=== PATIENT | female | born 1990 | race Asian ===

== ENCOUNTER → 2016-11-27 | Day surgery (SDC) | payer OTHER ==
[~2016-11-27] MED LIST: CEFAZOLIN 2000 MG/60 ML D5W IV SCH; CLIN1CAP51 PO; KETO10TA PO; LACTATED RINGER'S 1000ML 1,000 ML IV SCH; PATIENT'S ALLERGY INFO NEEDS ENTERED SCH; PATIENT'S HEIGHT AND/OR WEIGHT NEEDED SCH
== END | disposition home or self-care (01) ==
LOC: EDSTATUS 10:00 → C.PAT 14:34
DX: K13.79 Other lesions of oral mucosa (principal)

== ENCOUNTER → 2016-11-30 | Outpatient (CLI) | payer OTHER ==
[~2016-11-30] MED LIST changes: -CEFAZOLIN 2000 MG/60 ML D5W IV SCH; -LACTATED RINGER'S 1000ML 1,000 ML IV SCH; -PATIENT'S ALLERGY INFO NEEDS ENTERED SCH; -PATIENT'S HEIGHT AND/OR WEIGHT NEEDED SCH
== END | disposition home or self-care (01) ==
LOC: C.PATHSPEC 17:39
PROVIDERS: ATTEND Physician Assistant
DX: K13.79 Other lesions of oral mucosa (principal)

== ENCOUNTER 2016-12-03 21:23 | Emergency (ER) | payer OTHER ==
[~2016-12-03] VITALS: Ht 160 cm; Wt 49.6 kg
[2016-12-03 21:29] VITALS: TEMP 37; Ht 160 cm; Wt 49.6 kg
[2016-12-03] MEDS ORDERED: CLIN1CAP51 PO (21:45)
[2016-12-03] MEDS ORDERED: KETOROLAC TROMETHAMINE 10 MG TAB PO STA (22:35)
[2016-12-03] MEDS ORDERED: KETO10TA PO (22:38)
[2016-12-03] MEDS ORDERED: EMPTY 8 DRAM VIAL ONE (23:06)
[2016-12-03 23:14] VITALS: BP 99/63; PULSE 66; O2SAT 100
--- NOTE | 2016-12-04 23:09 | EMERGENCY ROOM VISIT NOTE ---
ED Visit Note First contact with patient: 21:35 Chief Complaint: Infection. History of Present Illness: Ms. Cardenas is a 26-year-old [place] female who ambulates into the ED complaining of a possible infection of her lip after a surgical procedure. Patient reports 3 days ago she had a mucocele removed over the right side of her lower lip. She started experiencing pain and swelling yesterday and was re- seen by the ENT specialist who did the procedure and started on clindamycin. Patient reports today she has noted increase in swelling, increasing pain and pus like drainage from her surgical site. Currently she describes her pain as a throbbing and sharp sensation. She rates her discomfort 9/10. Her pain is nonradiating. Her pain worsens with palpation, movements of the lips. She has not identified any alleviating factors related to the pain. She has not taken any medications for pain prior to arrival at the hospital. She denies any associated fevers, chills, sweats, facial swelling outside of her lip surgery, dental pain, mouth pain, neck pain/stiffness, chest pain, shortness of breath, abdominal pain, decreased appetite, nausea/vomiting. Review of Systems: As noted above in history of present illness. 8 body systems were reviewed and found to be negative as noted above. Past Medical History: As previously noted. Current Medications: As previously noted. Allergies to Medications: Patient denies. Social History: Patient is currently a student records coordinator; she feels safe in her home environment; she denies tobacco and alcohol use. Physical Examination: Vital Signs: Date Time Temp Pulse Resp B/P (MAP) Pulse Ox O2 Delivery O2 Flow Rate FiO2 12/03/16 23:14 66 17 99/63 100 12/03/16 21:29 37.0 79 16 126/82 98 Room Air GENERAL: 26-year-old female in mild distress due to pain, nontoxic-appearing, afebrile and hemodynamically stable. NEUROLOGICAL: Awake, alert and oriented to person, place and time. Answering questions appropriately and following commands. Normal gait. Good hand eye coordination. SKIN: Warm, dry and pink. HEENT: Atraumatic and normocephalic. Sclera white and conjunctiva pink. Lower Lip: Over the left side of the lower lip just inside of the mouth patient has 4 sutures at her surgical site. There is no active drainage. The surgical site is mildly edematous but not erythematous. The most proximal suture has a very small area of pus adjacent to the suture. There is no active bleeding or discharge. The areas not warm to touch. The oral cavity is moist and pink. Pharynx is nonerythematous or edematous. Speech normal. No lymphadenopathy. ED Course: Patient is assessed as noted above. Patient was offered pain medication and refused. Patient was educated about today's findings and instructed on her treatment plan ; she verbalizes understanding and agreement with this plan. Just prior to discharge I was called back to the patient's room by nursing staff informing that the patient wanted to speak to me again. When I went back in to the patient's room she requested iodine to clean her wound. After lengthy conversation I did give the patient Betadine preps and educated her on cleaning and rinsing the wound without swallowing the Betadine. Clinical Impression: Postoperative infection. Disposition: Patient discharged home in stable condition; prior to departure she was reassessed and subjectively reported she was feeling much better and rated her discomfort 4/10. Plan: Patient was encouraged to continue her clindamycin as prescribed. Patient was prescribed Toradol 10 mg every 6 hours as needed for pain; we did discuss the use of narcotics and she refused. Oral hygiene was discussed with the patient. Patient was encouraged use a liquid or mechanical soft diet and told [place] lotion of discomfort. Patient was encouraged to keep her upcoming appointment with her surgeon on Wednesday. Patient was encouraged return ED for worsening pain, fevers, worsening puslike drainage or any new/concerning symptoms.
== END 2016-12-03 23:15 | disposition home or self-care (01) ==
LOC: C.EDB 21:26 → C.EDD 23:15
DX: T81.4XXA Infection following a procedure, initial encounter (principal); Y84.9 Medical procedure, unspecified as the cause of abnormal reaction of the patient, or of later complication, without mention of misadventure at the time of the procedure